=== PATIENT | female | born 1990 | race American Indian/Alaskan Native ===

== ENCOUNTER 2016-12-08 10:22 | Emergency (ER) | payer OTHER ==
[2016-12-08 11:21] LABS: Basophils % (Auto) 0.6 % (0.0-1.8); Eosinophils % (Auto) 1.2 % (0.0-4.3); Hematocrit 34.3 % (30.3-42.9); Hemoglobin 11.6 gm/dl (10.1-14.3); Mean Corpuscular HGB Conc 34 % (30-34); Mean Corpuscular Hemoglobin 32 pg (28-32); Mean Corpuscular Volume 93 fl (79-97); Platelet Count 245 K/mm3 (140-440); Red Blood Count 3.68 M/mm3 (3.65-5.03); White Blood Count 8.6 K/mm3 (4.5-11.0)
[2016-12-08] MEDS ORDERED: XYLOCAINE 1% MPF 5 mL INFILTRATI ONE (11:28)
[2016-12-08 11:47] LABS: Alanine Aminotransferase 13 units/L (7-56); Albumin 4.5 g/dL (3.9-5); Albumin/Globulin Ratio 1.4 %; Alkaline Phosphatase 30 units/L (35-129); Anion Gap 17 mmol/L; BUN/Creatinine Ratio 30; Blood Urea Nitrogen 18 mg/dL (7-17); Calcium 9.6 mg/dL (8.4-10.2); Carbon Dioxide 25 mmol/L (22-30); Chloride 98.9 mmol/L (98-107); Glucose 117 mg/dL (65-100); Potassium 3.9 mmol/L (3.6-5.0); Sodium 137 mmol/L (137-145); Total Protein 7.7 g/dL (6.3-8.2)
--- NOTE | 2016-12-08 11:49 | Emergency Department Report ---
HPI - General Chief Complaint: Syncope Time Seen by Provider: 12/08/16 11:16 - HPI HPI: This is a 26 year-old female presents to the emergency department via EMS from work after the patient had a syncopal episode. The patient has a history of diabetic gastroparesis and says that when she gets constipated there is pressure in her abdomen and pelvis and it causes neuropathy and pain. Patient was on her way to the bathroom at work this morning and apparently passed out, witnessed by coworkers. Patient is unsure how long she was unconscious. She complains of a lip laceration and one of her front teeth being "dislodged." This has never happened to her before. 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 She did not take anything and was not given anything for her symptoms prior to presentation. No recent travel or sick contacts at home. ED Past Medical Hx - Past Medical History Hx Diabetes: Yes Additional medical history: GASTROPARESIS - Surgical History Additional Surgical History: C-SETION - Social History Smoking Status: Smoker, Current Status Unknown Substance Use Type: None - Medications Home Medications: Home Medications Medication Instructions Recorded Confirmed Last Taken Type Docusate Sodium [Colace] 100 mg PO BID PRN #20 capsule 12/08/16 Unknown Rx Magnesium Citrate [Citrate of 300 ml PO NOW #1 bottle 12/08/16 Unknown Rx Magnesia] Sulfamethoxazole/Trimethoprim 1 each PO BID #10 tablet 12/08/16 Unknown Rx [Bactrim DS TAB] ED Review of Systems ROS: Stated complaint: SYNCOPAL EPISODE Other details as noted in HPI Comment: All other systems reviewed and negative Constitutional: denies: chills, fever Eyes: denies: eye pain, eye discharge, vision change ENT: other (lip laceration, "dislodged tooth"). denies: ear pain, throat pain Respiratory: denies: cough, shortness of breath, wheezing Cardiovascular: syncope Gastrointestinal: denies: abdominal pain, nausea, diarrhea Genitourinary: denies: urgency, dysuria, discharge Musculoskeletal: denies: back pain, joint swelling, arthralgia Skin: denies: rash, lesions Neurological: denies: headache, weakness, paresthesias Physical Exam - Physical Exam Vital Signs: Vital Signs 12/08/16 12/08/16 10:37 10:52 Temperature 98.0 F Pulse Rate 87 Respiratory 18 18 Rate Blood Pressure 106/72 O2 Sat by Pulse 98 98 Oximetry Physical Exam: GENERAL: The patient is well-developed well-nourished. HENT: Normocephalic. Atraumatic. Patient has moist mucous membranes. EYES: Extraocular motions are intact. Pupils equal reactive to light bilaterally. No nystagmus. NECK: Supple. Trachea is midline. CHEST/LUNGS: Clear to auscultation. There is no respiratory distress noted. HEART/CARDIOVASCULAR: Regular. There is no tachycardia. There is no gallop rub or murmur. ABDOMEN: Abdomen is soft, nontender. Patient has normal bowel sounds. There is no abdominal distention. SKIN: Skin is warm and dry. NEURO: The patient is awake, alert, and oriented. The patient is cooperative. The patient has no focal neurologic deficits. The patient has normal speech. Cranial nerves II-12 grossly intact. MUSCULOSKELETAL: There is no tenderness or deformity. There is no limitation range of motion. There is no evidence of acute injury. ED Course Vital Signs 12/08/16 12/08/16 10:37 10:52 Temperature 98.0 F Pulse Rate 87 Respiratory 18 18 Rate Blood Pressure 106/72 O2 Sat by Pulse 98 98 Oximetry ED Medical Decision Making - Lab Data Result diagrams: 12/08/16 11:02 12/08/16 11:02 - EKG Data -: EKG Interpreted by De EKG shows normal: sinus rhythm, axis, intervals, QRS complexes (early repolarization), ST-T waves Rate: normal - EKG Data When compared to previous EKG there are: previous EKG unavailable Interpretation: other (early repolarization, no STEMI) - Radiology Data Radiology results: image reviewed interpreted by me: Abdominal x-ray shows a large amount of stool throughout the intestines but otherwise no signs of obstruction or any other acute process. - Medical Decision Making 26-year-old female presents after she had a syncopal episode at work. There have been no focal, motor or sensory deficits in her cranial nerves are intact. She has been reevaluated multiple times over multiple hours and there has been no further syncopal episodes or any altered mental status. Labs are mostly unremarkable and do not show any etiology of her symptoms. Since this is the first syncopal episode ever, and since there is no sign of any head trauma or any deficits, I did not feel that CT imaging of the head was necessary. She had an abdominal x-ray because she complains of some constipation or gastroparesis. There is no sign of obstruction but there is a large amount of stool throughout the colon. Vital signs stable throughout her ED course. Patient appears improved and asking for discharge home. She was given some Colace and magnesium citrate to help with her increased stool volume. She will follow-up with her primary care physician and knows to return to the emergency Department with any worsening of her symptoms or any acute distress. - Differential Diagnosis vasovagal, orthostatic hypotension, TIA, dysrhythmia Critical Care Time: No Critical care attestation.: If time is entered above; I have spent that time in minutes in the direct care of this critically ill patient, excluding procedure time. ED Disposition Clinical Impression: Increased stool volume Syncope Qualifiers: Syncope type: unspecified Qualified Code(s): R55 - Syncope and collapse UTI (urinary tract infection) Qualifiers: Urinary tract infection type: acute cystitis Hematuria presence: without hematuria Qualified Code(s): N30.00 - Acute cystitis without hematuria Lip laceration Qualifiers: Encounter type: initial encounter Qualified Code(s): S01.511A - Laceration without foreign body of lip, initial encounter Disposition: - TO HOME OR SELFCARE Is pt being admited?: No Condition: Stable Instructions: Constipation (ED), Urinary Tract Infection in Women (ED), Syncope (ED) Additional Instructions: Please follow-up with your primary care physician in the next few days. Return to the emergency Department with any worsening of your symptoms or any acute distress. Prescriptions: Docusate Sodium [Colace] 100 mg PO BID PRN #20 capsule PRN Reason: Constipation Magnesium Citrate [Citrate of Magnesia] 300 ml PO NOW #1 bottle Sulfamethoxazole/Trimethoprim [Bactrim DS TAB] 1 each PO BID #10 tablet Referrals: PRIMARY CARE, [Primary Care Provider] - TERES[facility] Forms: Work/School Release Form(ED) Time of Disposition: 13:54
[2016-12-08 13:22] LABS: Bacteria,Urine 1+ /HPF (Negative); Bilirubin,Urine NEG (Negative); Blood,Urine NEG (Negative); Ketones,Urine 20 mg/dL (Negative); Leukocyte Esterase,Urine TR (Negative); Mucus,Urine FEW /HPF; Nitrite,Urine NEG (Negative); Protein,Urine <15 mg/dL mg/dL (Negative); Urobilinogen,Urine < 2.0 mg/dL (<2.0)
[2016-12-08 14:19] VITALS: BP 111/68
--- NOTE | 2016-12-08 14:21 | XRay Report ---
ABDOMEN, 2 views: History: Abdominal pain. There is no evidence of free air beneath the diaphragms. The gas pattern within the abdomen is unremarkable. There is no evidence of bowel dilatation, significant air-fluid levels, or pathologic calcifications. Organ shadows are unremarkable. IMPRESSION: Unremarkable abdomen.
== END 2016-12-08 14:26 | disposition home or self-care (01) ==
LOC: ED 10:22
DX: N39.0 Urinary tract infection, site not specified (principal); S01.511A Laceration without foreign body of lip, initial encounter; E11.9 Type 2 diabetes mellitus without complications; X58.XXXA Exposure to other specified factors, initial encounter; Y93.89 Activity, other specified; Y92.89 Other specified places as the place of occurrence of the external cause; Y99.8 Other external cause status
CPT/HCPCS: 36415; 74020; 80053; 81001; 81025; 82962; 84443; 85025; 93005; 93010; 99284